=== PATIENT | male | born 1990 ===

== ENCOUNTER 2016-04-26 00:27 | Emergency (ER) | payer SELFPAY ==
[2016-04-26 00:41] VITALS: BP 119/67; PULSE 97; RESP 18; TEMP 97.4; O2SAT 100
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
== END 2016-04-26 02:25 | disposition home or self-care (01) ==
LOC: H.ER 00:27
DX: S00.431A Contusion of right ear, initial encounter (principal); Y04.0XXA Assault by unarmed brawl or fight, initial encounter